=== PATIENT | male | born 1950 | race Caucasian/White ===

== ENCOUNTER 2016-09-24 14:16 | Inpatient (IN) | payer MEDICARE ==
[2016-09-24] VITALS (9 sets, daily range): BP systolic 133–179; BP diastolic 76–111; PULSE 83–106; RESP 17–20; TEMP 97.7–99.1; O2SAT 95–100
[~2016-09-24] VITALS: Ht 188 cm; Wt 84.2 kg
[~2016-09-24 14:16] MED LIST: HYDR2.5%T PR; LISI-363 PO; POLY119S PO
[2016-09-24] MEDS ORDERED: SODIUM CHLOR 0.9% 1000 ML INJ 1,000 ML IV ONE ×4 (15:00→18:15)
[2016-09-24] MEDS ORDERED: ONDANSETRON HCL 4 MG/2 ML VIAL IV PUSH ONE (15:00)
[2016-09-24 15:05] LABS: AUTOMATED NEUTROPHIL # 18.6 TH/MM3 (1.8-7.7); BASOPHIL # 0.2 TH/MM3 (0-0.2); BASOPHIL % 0.8 % (0.0-2.0); EOSINOPHIL % 0.1 % (0.0-4.0); HEMATOCRIT 50.1 % (39.0-51.0); HEMO FLAGS DIFF FINAL; LYMPH % 7.8 % (9.0-44.0); LYMPHOCYTE # 1.6 TH/MM3 (1.0-4.8); MEAN CELL VOLUME 85.5 FL (80.0-100.0); MEAN CORPUSCULAR HEMOGLOBIN 28.2 PG (27.0-34.0); MONO % 2.6 % (0.0-8.0); NEUT % 88.7 % (16.0-70.0); PLATELET COUNT 340 TH/MM3 (150-450); RED BLOOD COUNT 5.86 MIL/MM3 (4.50-5.90); RED CELL DISTRIBUTION WIDTH 14.7 % (11.6-17.2); WHITE BLOOD COUNT 20.9 TH/MM3 (4.0-11.0)
[2016-09-24 15:16] LABS: CHLORIDE 101 MEQ/L (98-107); POTASSIUM 3.4 MEQ/L (3.5-5.1); SODIUM (NA) 139 MEQ/L (136-145)
[2016-09-24 15:20] LABS: ANION GAP 15 MEQ/L (5-15); BICARBONATE 22.9 MEQ/L (21.0-32.0); BLOOD UREA NITROGEN 24 MG/DL (7-18); MAGNESIUM 2.1 MG/DL (1.5-2.5)
[2016-09-24 15:23] LABS: ALT (GPT) 27 U/L (12-78); AST (GOT) 18 U/L (15-37); GLOMERULAR FILTRATION RATE 47 ML/MIN (>89)
[2016-09-24 15:25] LABS: TOTAL BILIRUBIN ADULT 1.2 MG/DL (0.2-1.0)
[2016-09-24 15:26] LABS: ALKALINE PHOSPHATASE 91 U/L (45-117)
[2016-09-24] MEDS ORDERED: IOHEXOL 350 MG/ML 10 ML VIAL (for RAD DIAG) IV ONE (15:42)
--- NOTE | 2016-09-24 15:59 | RADHPO ---
EXAM DATE/TIME: 09/24/2016 15:38 [place] COMPARISON: No previous studies available for comparison. INDICATIONS : Nausea and vomiting for two days. IV CONTRAST: 100 cc Omnipaque 350 (iohexol) IV ORAL CONTRAST: No oral contrast ingested. RADIATION DOSE: 10.47 CTDIvol (mGy) MEDICAL HISTORY : Hypertension. SURGICAL HISTORY : None. ENCOUNTER: Initial ACUITY: 2 days PAIN SCALE: 0/10 LOCATION: abdomen TECHNIQUE: Volumetric scanning of the abdomen and pelvis was performed. Using automated exposure control and ad justment of the mA and/or kV according to patient size, radiation dose was kept as low as reasonably achievable to obtain optimal diagnostic quality images. FINDINGS: LOWER LUNGS: The visualized lower lungs are clear. LIVER: Homogeneous density without lesion. There is no dilation of the biliary tree. Single small gallstone without evidence of gallbladder wall thickening. SPLEEN: Normal size without lesion. PANCREAS: Within normal limits. KIDNEYS: Normal in size and shape. There is no mass, stone or hydronephrosis. ADRENAL GLANDS: Within normal limits. VASCULAR: There is no aortic aneurysm. BOWEL/MESENTERY: There are multiple diverticuli identified throughout the sigmoid colon with prominence of the adjacen t mesenteric vasculature. No evidence of abscess or free air. The remainder of the large and small stephanie wel are unremarkable. ABDOMINAL WALL: Within normal limits. RETROPERITONEUM: There is no lymphadenopathy. BLADDER: No wall thickening or mass. REPRODUCTIVE: Within normal limits. INGUINAL: There is no lymphadenopathy or hernia. MUSCULOSKELETAL: Within normal limits for patient age. CONCLUSION: Diverticulosis of the sigmoid colon. Given the prominence of the adjacent mesenteric vasculature this may reflect early diverticulitis. No evidence of abscess. The remainder of the exam is grossly unremarkable. Single small nonobstructing gallstone. Shirley Shabazz MD on September 24, 2016 at 15:55 Board Certified Radiologist. This report was verified electronically.
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
[2016-09-24] MEDS ORDERED: PIPERACIL-TAZO 3.375 GM PREMIX 50 ML IV ONE (16:15)
[2016-09-24] MEDS ORDERED: ONDANSETRON HCL 4 MG/2 ML VIAL IVP ONE (19:30)
[2016-09-24] MEDS ORDERED: cloNIDine HCL 0.1 MG TAB PO ONE (19:30)
[2016-09-24] MEDS ORDERED: MORPHINE SULFATE 8 MG/ML INJ IV PUSH ONE (19:30)
[2016-09-24] MEDS ORDERED: ONDANSETRON HCL 4 MG/2 ML VIAL IVP PRN (20:15)
[2016-09-24] MEDS ORDERED: SODIUM CHLORIDE 0.9% FLUSH 5 ML FLUSH FLUSH PRN (20:15)
[2016-09-24] MEDS ORDERED: NALOXONE HCL 0.4 MG/ML AMP IV PRN (20:15)
[2016-09-24] MEDS ORDERED: MORPHINE SULFATE 4 MG/ML INJ IV PUSH PRN (20:15)
[2016-09-24] MEDS: SODIUM CHLOR 0.9% 1000 ML INJ 1,000 ML IV SCH (20:42)
[2016-09-24] MEDS: SODIUM CHLORIDE 0.9% FLUSH 5 ML FLUSH FLUSH SCH (20:43)
[2016-09-24] MEDS: PIPERACIL-TAZO 4.5 GM PREMIX 100 ML IV SCH (22:18)
[2016-09-24 22:27] LABS: BLOOD, URINE SMALL (NEG); GLUCOSE,URINE NEG (NEG); KETONE, URINE TRACE mg/dL (NEG); NITRITE,URINE NEG (NEG); PH, URINE 5.5 (5.0-8.5)
[2016-09-24 22:39] LABS: COMMENT (UR) CULT NOT INDICATED; CULTURE IF INDICATED CULT NOT INDICATED; SQUAMOUS EPITHELIAL CELL URINE 0-5 /hpf (0-5); URINE COLOR YELLOW (YELLW/STRAW); WBC, URINE 0-2 /hpf (0-5)
[2016-09-25] VITALS (11 sets, daily range): BP systolic 140–178; BP diastolic 81–119; PULSE 76–96; RESP 16–18; TEMP 97–98.4; O2SAT 95–99
[2016-09-25] MEDS: ACETAMINOPHEN 325 MG TAB PO PRN ×2 (03:41→09:29)
[2016-09-25] MEDS: PIPERACIL-TAZO 4.5 GM PREMIX 100 ML IV SCH ×2 (04:57→09:28)
[2016-09-25 05:13] LABS: AUTOMATED NEUTROPHIL # 15.1 TH/MM3 (1.8-7.7); BASOPHIL % 0.2 % (0.0-2.0); EOSINOPHIL # 0.1 TH/MM3 (0-0.4); EOSINOPHIL % 0.6 % (0.0-4.0); HEMATOCRIT 40.9 % (39.0-51.0); HEMO FLAGS DIFF FINAL; LYMPHOCYTE # 1.2 TH/MM3 (1.0-4.8); MEAN CELL VOLUME 85.9 FL (80.0-100.0); MEAN CORPUSCULAR HEMOGLOBIN 28.2 PG (27.0-34.0); MEAN CORPUSCULAR HGB CONC 32.8 % (32.0-36.0); NEUT % 88.2 % (16.0-70.0); PLATELET COUNT 238 TH/MM3 (150-450); RED BLOOD COUNT 4.76 MIL/MM3 (4.50-5.90); RED CELL DISTRIBUTION WIDTH 15.3 % (11.6-17.2); WHITE BLOOD COUNT 17.1 TH/MM3 (4.0-11.0)
[2016-09-25 05:36] LABS: BICARBONATE 23.7 MEQ/L (21.0-32.0); POTASSIUM 3.6 MEQ/L (3.5-5.1)
[2016-09-25] MEDS: SODIUM CHLOR 0.9% 1000 ML INJ 1,000 ML IV SCH ×2 (07:25→17:00)
[2016-09-25] MEDS: SODIUM CHLORIDE 0.9% FLUSH 5 ML FLUSH FLUSH SCH (09:00)
[2016-09-25] MEDS ORDERED: ENOXAPARIN SODIUM 40 MG/0.4 ML SYRINGE SQ SCH (09:00)
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
[2016-09-25] MEDS ORDERED: CIPR-9 PO (14:17)
[2016-09-25] MEDS ORDERED: METR-1 PO (14:17)
[2016-09-25] MEDS ORDERED: LISI-515 PO (14:17)
--- NOTE | 2016-09-25 14:18 | HHI.DCPOC ---
Discharge Care Plan Diagnosis: (1) Sepsis (2) Accelerated hypertension (3) Vomiting (4) Diverticulitis Goals to Promote Your Health * To prevent worsening of your condition and complications * To maintain your health at the optimal level Directions to Meet Your Goals Take your medications as prescribed Follow your dietary instruction Follow activity as directed Keep your appointments as scheduled Take your immunizations and boosters as scheduled If your symptoms worsen call your PCP, if no PCP go to Urgent Care Center or Emergency Room Smoking is Dangerous to Your Health. Avoid second hand smoke Call the 24-hour hour crisis hotline for domestic abuse at González Gallagher Sep 25, 2016 14:18
[2016-09-25] MEDS ORDERED: LISINOPRIL 20 MG TAB PO SCH (15:00)
[2016-09-25] MEDS ORDERED: ENALAPRILAT 1.25 MG/ML VIAL IV PUSH PRN (16:30)
== END 2016-09-25 18:50 | disposition home or self-care (01) | DRG 872 ==
LOC: PHED 14:16 → PHEDA 19:14 → PHEDH 23:14 → PH3A 09-25 14:05
PROVIDERS: ADMIT Family Medicine; ATTEND Family Medicine
DX: A41.9 Sepsis, unspecified organism (principal); N17.9 Acute kidney failure, unspecified; E86.0 Dehydration; K57.32 Diverticulitis of large intestine without perforation or abscess without bleeding; I16.0 Hypertensive urgency; I10 Essential (primary) hypertension; M54.2 Cervicalgia; M54.9 Dorsalgia, unspecified; R41.3 Other amnesia; Z85.828 Personal history of other malignant neoplasm of skin; Z87.820 Personal history of traumatic brain injury; Z87.891 Personal history of nicotine dependence
CPT/HCPCS: 74177; 80048; 80053; 81001; 83605; 83690; 83735; 84100; 85025; 87040; 96361; 96365; 96375; J1650; J2270; J2405; J2543; J7030; Q9967